=== PATIENT | female | born 1955 | race Caucasian/White ===

== ENCOUNTER 2021-09-20 18:55 | Inpatient (IN) | payer MEDICARE, MEDICAID ==
[~2021-09-20] VITALS: Ht 152.4 cm; Wt 97.5 kg
[2021-09-20 20:30] LABS: BASOPHILS % 0.4 % (0.0-2.0); EOSINOPHILS % 1.2 % (0.0-5.0); HEMATOCRIT. 42.2 % (36.0-48.0); HEMOGLOBIN. 13.6 g/dL (12.0-16.0); LYMPHOCYTES % 31.9 % (20.0-50.0); MEAN CORPUSCULAR HEMOGLOBIN 27.6 pg (28.0-32.0); MEAN CORPUSCULAR VOLUME 85.8 fL (81.0-99.0); MEAN PLATELET VOLUME 9.9 fl (7.4-10.4); MONOCYTES % 6.5 % (2.0-8.0); PLATELET 77 x1000/uL (130-400); RED BLOOD CELL COUNT 4.92 mill/uL (4.2-5.4)
[2021-09-20 20:35] LABS: CHLORIDE 108 mEq/L (98-107)
[2021-09-20 20:38] LABS: INR 0.9
[2021-09-20] MEDS: AMPICILLIN SOD/SULBACTAM NA 3 G in SODIUM CHLORIDE 0.9% 100 ML IV SCH (23:00)
[2021-09-21] MEDS ORDERED: NALOXONE HCL 0.4MG/ML VIAL IV PRN (01:30)
[2021-09-21] MEDS: HYDROCODONE/ACETAMINOPHEN 10/325MG TABLET PO PRN ×2 (02:33→13:42)
[2021-09-21] MEDS: AMPICILLIN SOD/SULBACTAM NA 3 G in SODIUM CHLORIDE 0.9% 100 ML IV SCH ×2 (03:00→10:13)
[2021-09-21] MEDS ORDERED: MAGNESIUM/ALUMINUM HYDROXIDE/SIMETHICONE 30ML UDC PO PRN (10:45)
[2021-09-21] MEDS ORDERED: CLONIDINE 0.1MG TABLET PO PRN (10:45)
[2021-09-21] MEDS ORDERED: ACETAMINOPHEN 325MG TABLET PO PRN (10:45)
[2021-09-21] MEDS ORDERED: ENOXAPARIN 40MG/0.4ML SYR SUBCUT SCH (11:00)
[2021-09-21 12:00] VITALS: BP 152/74
[2021-09-21 12:51] VITALS: BP 152/74
[2021-09-21] MEDS: CEFTRIAXONE 1,000 MG in DEXTROSE 5% WATER 50 ML IV SCH (13:42)
[2021-09-21] MEDS ORDERED: VANCOMYCIN 2,000 MG in DEXT 5% WATER 500 ML IV SCH (14:00)
[2021-09-21 16:00] VITALS: BP 145/88
[2021-09-21] MEDS ORDERED: ATOR40TA70 MT (17:13)
[2021-09-21] MEDS ORDERED: CETI10TA11 MT (17:13)
[2021-09-21] MEDS ORDERED: MONT-39 MT (17:13)
[2021-09-21] MEDS ORDERED: ONDA4TAB11 PO (17:14)
[2021-09-21] MEDS ORDERED: DOCU250C69 MT (17:14)
[2021-09-21] MEDS ORDERED: ALBU18HF2 IH (17:14)
[2021-09-21] MEDS ORDERED: EMPA25TA MT (17:14)
[2021-09-21] MEDS ORDERED: LOSA100T32 MT (17:14)
[2021-09-21] MEDS ORDERED: GABA800T97 MT (17:14)
[2021-09-21] MEDS ORDERED: FLUT1BLS INH (17:14)
[2021-09-21] MEDS ORDERED: FLUT15.844 BOTHNSTRLS (17:14)
[2021-09-21] MEDS ORDERED: DEXTROSE 50% WATER 50ML SYRINGE IV PRN (19:45)
[2021-09-21 20:00] VITALS: BP 144/49
[2021-09-21] MEDS ORDERED: AMLODIPINE 5MG TABLET PO SCH (20:30)
[2021-09-21] MEDS: GABAPENTIN 400MG CAPSULE PO SCH (20:49)
[2021-09-21] MEDS: MONTELUKAST SODIUM 10MG TABLET PO SCH (20:49)
[2021-09-21] MEDS: INSULIN LISPRO 100 UNITS/ML SUBCUT SCH (20:55)
[2021-09-21] MEDS: BLOOD SUGAR DIAGNOSTIC STRIP TEST SCH (20:55)
[2021-09-21] MEDS ORDERED: *PATIENT'S OWN MEDICATION STORAGE XX SCH (23:15)
[2021-09-22] VITALS: BP 158/57
[2021-09-22 04:00] VITALS: BP 155/54
[2021-09-22] MEDS: VANCOMYCIN 750MG PREMIX 150 ML IV SCH (05:53)
[2021-09-22] MEDS ORDERED: VANCOMYCIN 1GM PMX (XELLIA) 200 ML IV SCH (06:00)
[2021-09-22] MEDS: BLOOD SUGAR DIAGNOSTIC STRIP TEST SCH ×3 (07:00→21:09)
[2021-09-22] MEDS: INSULIN LISPRO 100 UNITS/ML SUBCUT SCH ×4 (07:50→21:08)
[2021-09-22 08:40] LABS: BASOPHILS % 0.5 % (0.0-2.0); EOSINOPHILS % 2.1 % (0.0-5.0); HEMATOCRIT. 40.2 % (36.0-48.0); HEMOGLOBIN. 13.1 g/dL (12.0-16.0); LYMPHOCYTES % 20.8 % (20.0-50.0); MEAN CORPUSCULAR HEMOGLOBIN 27.7 pg (28.0-32.0); MEAN CORPUSCULAR VOLUME 85.1 fL (81.0-99.0); MEAN PLATELET VOLUME 9.9 fl (7.4-10.4); NEUTROPHILS % 68.6 % (40.0-76.0); PLATELET 85 x1000/uL (130-400); RED BLOOD CELL COUNT 4.73 mill/uL (4.2-5.4); RED CELL DISTRIBUTION WIDTH 15.1 % (11.6-14.6)
[2021-09-22] MEDS ORDERED: ATORVASTATIN CALCIUM 40MG TABLET PO SCH (09:00)
[2021-09-22 09:01] LABS: CHLORIDE 103 mEq/L (98-107)
[2021-09-22] MEDS: DOCUSATE SODIUM 250MG CAPSULE PO SCH ×2 (09:56→18:55)
[2021-09-22] MEDS: CEFTRIAXONE 1,000 MG in DEXTROSE 5% WATER 50 ML IV SCH (09:56)
[2021-09-22] MEDS: LOSARTAN POTASSIUM 100 MG TABLET PO SCH (09:56)
[2021-09-22] MEDS: GABAPENTIN 400MG CAPSULE PO SCH ×2 (09:57→18:55)
[2021-09-22 20:00] VITALS: BP 147/58
[2021-09-22] MEDS: ATORVASTATIN CALCIUM 40MG TABLET PO SCH (21:09)
[2021-09-22] MEDS: MONTELUKAST SODIUM 10MG TABLET PO SCH (21:09)
[2021-09-22] MEDS: HYDROCODONE/ACETAMINOPHEN 10/325MG TABLET PO PRN (21:15)
[2021-09-23] VITALS: BP 140/60
[2021-09-23] MEDS: VANCOMYCIN 750MG PREMIX 150 ML IV SCH (00:07)
[2021-09-23 04:00] VITALS: BP 138/65
[2021-09-23] MEDS: BLOOD SUGAR DIAGNOSTIC STRIP TEST SCH ×4 (07:20→21:00)
[2021-09-23 08:00] VITALS: BP 160/70
[2021-09-23 08:42] LABS: BASOPHILS % 0.4 % (0.0-2.0); HEMATOCRIT. 42.7 % (36.0-48.0); HEMOGLOBIN. 14.1 g/dL (12.0-16.0); LYMPHOCYTES % 26.7 % (20.0-50.0); MEAN CORPUSCULAR VOLUME 84.7 fL (81.0-99.0); MEAN PLATELET VOLUME 9.6 fl (7.4-10.4); MONOCYTES % 6.6 % (2.0-8.0); NEUTROPHILS % 63.3 % (40.0-76.0); PLATELET 91 x1000/uL (130-400); RED BLOOD CELL COUNT 5.04 mill/uL (4.2-5.4); RED CELL DISTRIBUTION WIDTH 14.9 % (11.6-14.6)
[2021-09-23] MEDS ORDERED: AMLODIPINE 5MG TABLET PO SCH (09:00)
[2021-09-23] MEDS: FLUTICASONE/VILANTEROL 200-25 BLST.W.DEV ORI SCH ×2 (09:00→13:31)
[2021-09-23 09:25] LABS: CHLORIDE 102 mEq/L (98-107)
[2021-09-23] MEDS: CEFTRIAXONE 1,000 MG in DEXTROSE 5% WATER 50 ML IV SCH (10:08)
[2021-09-23] MEDS: LOSARTAN POTASSIUM 100 MG TABLET PO SCH (10:08)
[2021-09-23] MEDS: GABAPENTIN 400MG CAPSULE PO SCH ×2 (10:08→18:29)
[2021-09-23] MEDS: DOCUSATE SODIUM 250MG CAPSULE PO SCH ×2 (10:10→18:29)
[2021-09-23] MEDS: INSULIN LISPRO 100 UNITS/ML SUBCUT SCH ×4 (10:40→22:46)
[2021-09-23] MEDS: HYDROCODONE/ACETAMINOPHEN 10/325MG TABLET PO PRN ×2 (10:42→22:49)
[2021-09-23] MEDS ORDERED: VANCOMYCIN 750MG PREMIX 150 ML IV SCH (12:00)
[2021-09-23 16:00] VITALS: BP 130/55
[2021-09-23 20:00] VITALS: BP 134/50
[2021-09-23] MEDS ORDERED: MAGNESIUM 1 G PREMIX 100 ML IV NR (20:00)
[2021-09-23] MEDS: MONTELUKAST SODIUM 10MG TABLET PO SCH (20:33)
[2021-09-23] MEDS: ATORVASTATIN CALCIUM 40MG TABLET PO SCH (20:33)
[2021-09-24] VITALS: BP 132/58
[2021-09-24 04:00] VITALS: BP 130/56
[2021-09-24] MEDS: BLOOD SUGAR DIAGNOSTIC STRIP TEST SCH ×4 (06:24→21:00)
[2021-09-24 08:00] VITALS: BP 139/54
[2021-09-24 08:20] LABS: BASOPHILS % 0.4 % (0.0-2.0); EOSINOPHILS % 2.6 % (0.0-5.0); HEMATOCRIT. 39.9 % (36.0-48.0); LYMPHOCYTES % 24.1 % (20.0-50.0); MEAN CORPUSCULAR HEMOGLOBIN 27.7 pg (28.0-32.0); MEAN PLATELET VOLUME 9.9 fl (7.4-10.4); MONOCYTES % 7.3 % (2.0-8.0); NEUTROPHILS % 65.6 % (40.0-76.0); PLATELET 83 x1000/uL (130-400); RED CELL DISTRIBUTION WIDTH 14.7 % (11.6-14.6)
[2021-09-24 08:34] LABS: CHLORIDE 106 mEq/L (98-107)
[2021-09-24] MEDS ORDERED: LIDOCAINE HCL 1% 10 MG/ML 10ML VIAL ONE (08:41)
[2021-09-24] MEDS: AMLODIPINE 10MG TABLET PO SCH (10:20)
[2021-09-24] MEDS: FLUTICASONE/VILANTEROL 200-25 BLST.W.DEV ORI SCH (10:20)
[2021-09-24] MEDS: LOSARTAN POTASSIUM 100 MG TABLET PO SCH (10:20)
[2021-09-24] MEDS: GABAPENTIN 400MG CAPSULE PO SCH ×2 (10:20→18:31)
[2021-09-24] MEDS: DOCUSATE SODIUM 250MG CAPSULE PO SCH ×2 (10:20→17:00)
[2021-09-24] MEDS: CEFTRIAXONE 1,000 MG in DEXTROSE 5% WATER 50 ML IV SCH (10:21)
[2021-09-24] MEDS: INSULIN LISPRO 100 UNITS/ML SUBCUT SCH ×4 (10:39→21:00)
[2021-09-24] MEDS: HYDROCODONE/ACETAMINOPHEN 10/325MG TABLET PO PRN ×2 (10:47→18:45)
[2021-09-24 12:00] VITALS: BP 119/43
[2021-09-24] MEDS ORDERED: VANCOMYCIN 750MG PREMIX 150 ML IV SCH (12:00)
[2021-09-24] MEDS: ONDANSETRON HCL 4MG/2ML INJ IV PRN (13:57)
[2021-09-24 16:00] VITALS: BP 138/47
[2021-09-24] MEDS ORDERED: LEVOFLOXACIN 250MG TABLET PO SCH (17:45)
[2021-09-24] MEDS: METOCLOPRAMIDE HCL 10MG/2ML VIAL IV SCH (18:34)
[2021-09-24 20:00] VITALS: BP 126/53
[2021-09-24 20:12] LABS: CLARITY URINE CLEAR (CLEAR); COLOR URINE YELLOW (YELLOW); KETONES URINE NEGATIVE (NEGATIVE); LEUKOCYTE ESTERASE URINE NEGATIVE (NEGATIVE); NITRITE URINE NEGATIVE (NEGATIVE); OCCULT BLOOD URINE TRACE (NEGATIVE); PROTEIN URINE 2+ (NEGATIVE); SPECIFIC GRAVITY URINE 1.014 (1.005-1.030); UROBILINOGEN URINE 0.2 E.U./dL (0.2-1.0)
[2021-09-25] VITALS: BP 135/55
[2021-09-25] MEDS: ATORVASTATIN CALCIUM 40MG TABLET PO SCH ×2 (00:14→21:52)
[2021-09-25] MEDS: CEFEPIME 2,000 MG in DEXT 5% WATER 100 ML IV SCH ×3 (00:14→21:47)
[2021-09-25] MEDS: MONTELUKAST SODIUM 10MG TABLET PO SCH ×2 (00:14→21:53)
[2021-09-25] MEDS: METOCLOPRAMIDE HCL 10MG/2ML VIAL IV SCH ×4 (00:15→18:01)
[2021-09-25] MEDS: HYDROCODONE/ACETAMINOPHEN 10/325MG TABLET PO PRN ×3 (03:36→18:02)
[2021-09-25 04:00] VITALS: BP 139/54
[2021-09-25] MEDS: BLOOD SUGAR DIAGNOSTIC STRIP TEST SCH ×4 (05:34→21:53)
[2021-09-25] MEDS: INSULIN LISPRO 100 UNITS/ML SUBCUT SCH ×4 (07:50→23:06)
[2021-09-25 08:00] VITALS: BP 128/55
[2021-09-25] MEDS: DOCUSATE SODIUM 250MG CAPSULE PO SCH (09:00)
[2021-09-25] MEDS: LOSARTAN POTASSIUM 100 MG TABLET PO SCH (09:45)
[2021-09-25] MEDS: AMLODIPINE 10MG TABLET PO SCH (09:46)
[2021-09-25] MEDS: FLUTICASONE/VILANTEROL 200-25 BLST.W.DEV ORI SCH (09:46)
[2021-09-25] MEDS: GABAPENTIN 400MG CAPSULE PO SCH ×2 (09:46→18:01)
[2021-09-25 11:29] LABS: BASOPHILS % 0.2 % (0.0-2.0); EOSINOPHILS % 1.4 % (0.0-5.0); HEMATOCRIT. 39.6 % (36.0-48.0); HEMOGLOBIN. 12.9 g/dL (12.0-16.0); LYMPHOCYTES % 22.8 % (20.0-50.0); MEAN CORPUSCULAR HEMOGLOBIN 27.7 pg (28.0-32.0); MEAN CORPUSCULAR VOLUME 85.2 fL (81.0-99.0); MEAN PLATELET VOLUME 9.7 fl (7.4-10.4); MONOCYTES % 5.6 % (2.0-8.0); PLATELET 82 x1000/uL (130-400); RED BLOOD CELL COUNT 4.65 mill/uL (4.2-5.4); RED CELL DISTRIBUTION WIDTH 14.7 % (11.6-14.6)
[2021-09-25 11:33] LABS: CHLORIDE 105 mEq/L (98-107)
[2021-09-25 16:00] VITALS: BP 134/55
[2021-09-25 20:00] VITALS: BP 145/52
[2021-09-26] VITALS: BP 152/45
[2021-09-26] MEDS: METOCLOPRAMIDE HCL 10MG/2ML VIAL IV SCH ×5 (01:54→23:36)
[2021-09-26 04:00] VITALS: BP 168/66
[2021-09-26] MEDS: BLOOD SUGAR DIAGNOSTIC STRIP TEST SCH ×4 (07:36→20:50)
[2021-09-26] MEDS: INSULIN LISPRO 100 UNITS/ML SUBCUT SCH ×4 (07:40→20:49)
[2021-09-26 08:00] VITALS: BP 140/93
[2021-09-26] MEDS: FLUTICASONE/VILANTEROL 200-25 BLST.W.DEV ORI SCH (09:26)
[2021-09-26] MEDS: GABAPENTIN 400MG CAPSULE PO SCH ×2 (09:27→18:26)
[2021-09-26] MEDS: LOSARTAN POTASSIUM 100 MG TABLET PO SCH (09:27)
[2021-09-26] MEDS: AMLODIPINE 10MG TABLET PO SCH (09:27)
[2021-09-26] MEDS: CEFEPIME 2,000 MG in DEXT 5% WATER 100 ML IV SCH ×2 (09:28→20:47)
[2021-09-26 12:00] VITALS: BP 126/67
[2021-09-26] MEDS ORDERED: LOPERAMIDE HCL 2MG CAPSULE PO PRN (12:30)
[2021-09-26] MEDS ORDERED: NALOXONE HCL 0.4MG/ML VIAL IV PRN (12:45)
[2021-09-26] MEDS: HYDROCODONE/ACETAMINOPHEN 10/325MG TABLET PO PRN (18:28)
[2021-09-26 20:00] VITALS: BP 117/50
[2021-09-26] MEDS: ATORVASTATIN CALCIUM 40MG TABLET PO SCH (20:47)
[2021-09-26] MEDS: MONTELUKAST SODIUM 10MG TABLET PO SCH (20:47)
[2021-09-26] MEDS ORDERED: LATANOPROST 0.005% OPHTH DROPS 2.5ML BOTHEYE SCH (21:00)
[2021-09-26] MEDS: BRIMONIDINE 0.2% OPHTH DROPS 5ML BOTHEYE SCH (21:05)
[2021-09-27] VITALS: BP 136/65
[2021-09-27 04:00] VITALS: BP 140/59
[2021-09-27] MEDS: METOCLOPRAMIDE HCL 10MG/2ML VIAL IV SCH ×2 (06:12→10:27)
[2021-09-27] MEDS: BLOOD SUGAR DIAGNOSTIC STRIP TEST SCH ×2 (06:31→12:29)
[2021-09-27] MEDS: HYDROCODONE/ACETAMINOPHEN 10/325MG TABLET PO PRN (06:35)
[2021-09-27 06:40] LABS: BASOPHILS % 0.4 % (0.0-2.0); EOSINOPHILS % 2.8 % (0.0-5.0); HEMATOCRIT. 40.3 % (36.0-48.0); HEMOGLOBIN. 13.5 g/dL (12.0-16.0); LYMPHOCYTES % 24.1 % (20.0-50.0); MEAN CORPUSCULAR HEMOGLOBIN 28.1 pg (28.0-32.0); MEAN PLATELET VOLUME 10.7 fl (7.4-10.4); NEUTROPHILS % 66.7 % (40.0-76.0); PLATELET 73 x1000/uL (130-400); RED CELL DISTRIBUTION WIDTH 14.5 % (11.6-14.6)
[2021-09-27 07:16] LABS: CHLORIDE 105 mEq/L (98-107)
[2021-09-27 08:00] VITALS: BP 149/69
[2021-09-27] MEDS: LOSARTAN POTASSIUM 100 MG TABLET PO SCH (10:26)
[2021-09-27] MEDS: GABAPENTIN 400MG CAPSULE PO SCH (10:27)
[2021-09-27] MEDS: AMLODIPINE 10MG TABLET PO SCH (10:28)
[2021-09-27] MEDS: CEFEPIME 2,000 MG in DEXT 5% WATER 100 ML IV SCH (10:29)
[2021-09-27] MEDS: FLUTICASONE/VILANTEROL 200-25 BLST.W.DEV ORI SCH (10:31)
[2021-09-27] MEDS: BRIMONIDINE 0.2% OPHTH DROPS 5ML BOTHEYE SCH ×2 (10:32→13:18)
[2021-09-27] MEDS: INSULIN LISPRO 100 UNITS/ML SUBCUT SCH ×2 (10:35→12:29)
[2021-09-27] MEDS: ONDANSETRON HCL 4MG/2ML INJ IV PRN (10:40)
[2021-09-27 12:00] VITALS: BP 158/66
[2021-09-27 16:12] VITALS: BP 128/85
[2021-09-27] MEDS ORDERED: METO10TA3 MT (16:42)
[2021-09-27] MEDS ORDERED: LEVO750T46 MT (16:43)
== END 2021-09-27 16:56 | disposition home health service (06) | DRG 638 ==
LOC: ER 18:55 → MICUSO 20:56 → 6EST 09-21 10:21
PROVIDERS: ADMIT Internal Medicine; ATTEND Internal Medicine
PROC: 02H633Z Insertion of Infusion Device into Right Atrium, Percutaneous Approach (ICD-10-PCS; principal; 2021-09-24)
PROC: B548ZZA Ultrasonography of Superior Vena Cava, Guidance (ICD-10-PCS; 2021-09-24)
DX: E11.622 Type 2 diabetes mellitus with other skin ulcer (principal); L03.115 Cellulitis of right lower limb; Z68.41 Body mass index [BMI] 40.0-44.9, adult; L03.116 Cellulitis of left lower limb; I87.8 Other specified disorders of veins; L98.499 Non-pressure chronic ulcer of skin of other sites with unspecified severity; I89.0 Lymphedema, not elsewhere classified; J45.909 Unspecified asthma, uncomplicated; I83.019 Varicose veins of right lower extremity with ulcer of unspecified site; I83.029 Varicose veins of left lower extremity with ulcer of unspecified site; I10 Essential (primary) hypertension; I87.2 Venous insufficiency (chronic) (peripheral); E11.40 Type 2 diabetes mellitus with diabetic neuropathy, unspecified; D69.6 Thrombocytopenia, unspecified; E66.9 Obesity, unspecified; Z79.4 Long term (current) use of insulin; Z79.51 Long term (current) use of inhaled steroids; Z88.3 Allergy status to other anti-infective agents; Z20.822 Contact with and (suspected) exposure to COVID-19
CPT/HCPCS: 36415; 36573; 71045; 74018; 74176; 80048; 80053; 80076; 80202; 81003; 82962; 83036; 83735; 84100; 84145; 85025; 87070; 87077; 87186; 87426; 89055; 93970; 99285; C1725; J0295; J0692; J0696; J1815; J2310; J2405; J2765; J3370; J3475; J3490; J7050; J7060

== ENCOUNTER 2024-07-17 13:35 | Inpatient (IN) | payer MEDICARE, MEDICAID ==
[2024-07-16 14:12] VITALS: PULSE 84; RESP 18
[~2024-07-17] VITALS: Ht 152.4 cm; Wt 101.2 kg
[~2024-07-17 13:35] MED LIST: ALBU18HF2 IH; ATOR40TA70 MT; CETI10TA11 MT; DOCU-405 MT; EMPA25TA MT; FLUT15.844 BOTHNSTRLS; FLUT1BLS INH; GABA800T97 MT; LEVO750T68 MT; LOSA100T33 MT; METO10TA3 MT; MONT-39 MT; ONDA-239 PO
[2024-07-17] MEDS: ALBUTEROL (0.083%) 2.5MG/3ML NEB HHN SCH (14:12)
[2024-07-17] MEDS: IPRATROPIUM BROMIDE (0.02%) 0.5MG/2.5ML NEB HHN STA (14:12)
[2024-07-17] MEDS: METHYLPREDNISOLONE SOD SUCC 125MG/2ML (ACT-O-VIAL) IV STA (14:32)
[2024-07-17 14:40] VITALS: PULSE 84; RESP 18
[2024-07-17 14:45] LABS: BASOPHILS % 0.3 % (0.0-2.0); DIFFERENTIAL COMMENT 0; EOSINOPHILS % 1.5 % (0.0-5.0); HEMOGLOBIN. 9.4 g/dL (12.0-16.0); LYMPHOCYTES % 18.6 % (20.0-50.0); MEAN CORPUSCULAR HEMOGLOBIN 24.1 pg (28.0-32.0); MEAN CORPUSCULAR HGB CONC 31.3 g/dL (31.0-37.0); MEAN CORPUSCULAR VOLUME 77.2 fL (81.0-99.0); MEAN PLATELET VOLUME 7.3 fl (7.4-10.4); MONOCYTES % 5.7 % (2.0-8.0); NEUTROPHILS % 73.9 % (40.0-76.0); PLATELET 310 x1000/uL (130-400); RED BLOOD CELL COUNT 3.88 mill/uL (4.2-5.4); RED CELL DISTRIBUTION WIDTH 17.9 % (11.6-14.6); WHITE BLOOD COUNT 11.5 x1000/uL (4.5-11.0)
[2024-07-17 14:52] LABS: CHLORIDE 109 mEq/L (98-107); POTASSIUM 3.7 mEq/L (3.5-5.1); SODIUM 141 mEq/L (136-145)
[2024-07-17 14:53] LABS: CALCIUM 8.5 mg/dL (8.7-10.4); CARBON DIOXIDE 27 mEq/L (21-32)
[2024-07-17 14:56] VITALS: PULSE 84; RESP 20
[2024-07-17 14:58] LABS: CREATININE 0.8 mg/dL (0.6-1.0); GLUCOSE 177 mg/dL (70-105); UREA NITROGEN BLOOD 18 mg/dL (9-23)
[2024-07-17 15:00] LABS: TROPONIN I HIGH SENSITIVITY 7 ng/L (3.0-34)
[2024-07-17] MEDS ORDERED: AZITHROMYCIN 500MG/250ML 250 ML IV SCH (16:15)
[2024-07-17] MEDS: AZITHROMYCIN 500MG/250ML 250 ML IV SCH ×2 (16:50→21:18)
[2024-07-17 17:14] LABS: TROPONIN I HIGH SENSITIVITY 11 ng/L (3.0-34)
[2024-07-17 18:59] VITALS: BP 184/69; PULSE 97; RESP 20; TEMP 36.7; O2SAT 100
[2024-07-17 20:00] VITALS: BP 190/83; PULSE 93; RESP 18; TEMP 36.1; O2SAT 99
[2024-07-17 20:08] LABS: HEPATITIS B SURFACE ANTIGEN NEGATIVE (Negative)
[2024-07-17] MEDS ORDERED: ONDANSETRON HCL 4MG/2ML INJ IV PRN (20:15)
[2024-07-17] MEDS ORDERED: DEXTROSE 50% WATER 50ML SYRINGE IV PRN (20:15)
[2024-07-17 20:30] LABS: HEPATITIS C AB NON REACTIVE (Neg) (Negative)
[2024-07-17] MEDS: INSULIN LISPRO 100 UNITS/ML SUBCUT SCH (21:04)
[2024-07-17] MEDS: METHYLPREDNISOLONE SOD SUCC 40MG/ML (ACT-O-VIAL) IV SCH (21:05)
[2024-07-17] MEDS: GABAPENTIN 400MG CAPSULE PO SCH (21:05)
[2024-07-17] MEDS: ATORVASTATIN CALCIUM 40MG TABLET PO SCH (21:05)
[2024-07-17] MEDS: AMLODIPINE 10MG TABLET PO SCH (21:06)
[2024-07-17] MEDS: BLOOD SUGAR DIAGNOSTIC STRIP TEST SCH (21:11)
[2024-07-17 23:00] VITALS: PULSE 94; RESP 21; O2SAT 98
[2024-07-17] MEDS: IPRATROPIUM/ALBUTEROL 0.5-3(2.5)MG/3ML NEB HHN SCH (23:04)
[2024-07-17] MEDS: BUDESONIDE 0.5MG/2ML NEB HHN SCH (23:05)
[2024-07-17 23:55] VITALS: BP 190/83; PULSE 93; RESP 18; TEMP 36.1
[2024-07-18] VITALS (11 sets, daily range): BP systolic 117–150; BP diastolic 42–70; PULSE 76–92; RESP 16–20; TEMP 36.1–37; O2SAT 95–99
[2024-07-18 07:31] LABS: BASOPHILS % 0.1 % (0.0-2.0); DIFFERENTIAL COMMENT 0; HEMATOCRIT. 31.9 % (36.0-48.0); LYMPHOCYTES % 10.4 % (20.0-50.0); MEAN CORPUSCULAR HEMOGLOBIN 24.4 pg (28.0-32.0); MEAN CORPUSCULAR HGB CONC 31.4 g/dL (31.0-37.0); MEAN CORPUSCULAR VOLUME 77.8 fL (81.0-99.0); MEAN PLATELET VOLUME 8.4 fl (7.4-10.4); MONOCYTES % 1.3 % (2.0-8.0); NEUTROPHILS % 88.2 % (40.0-76.0); PLATELET 281 x1000/uL (130-400); RED CELL DISTRIBUTION WIDTH 17.9 % (11.6-14.6); WHITE BLOOD COUNT 6.8 x1000/uL (4.5-11.0)
[2024-07-18] MEDS: DOCUSATE SODIUM 250MG CAPSULE PO SCH (08:37)
[2024-07-18] MEDS: LOSARTAN 50 MG TABLET PO SCH (08:37)
[2024-07-18] MEDS: EMPAGLIFLOZIN 25MG TABLET PO SCH (08:37)
[2024-07-18] MEDS: CETIRIZINE 10MG TABLET PO SCH (08:37)
[2024-07-18] MEDS: INSULIN GLARGINE 100 UNITS/ML SUBCUT SCH ×2 (14:47→21:23)
[2024-07-18] MEDS: MONTELUKAST SODIUM 10MG TABLET PO SCH (17:02)
[2024-07-18] MEDS: FUROSEMIDE 40MG/4ML VIAL IVP SCH (17:02)
[2024-07-18] MEDS: ENOXAPARIN 40MG/0.4ML SYR SUBCUT SCH (21:26)
[2024-07-18] MEDS ORDERED: INSULIN GLARGINE 100 UNITS/ML SUBCUT SCH (22:00)
[2024-07-19] VITALS (10 sets, daily range): BP systolic 95–153; BP diastolic 52–67; PULSE 73–97; RESP 16–20; TEMP 36.2–36.8; O2SAT 94–100
[2024-07-19] MEDS: INSULIN LISPRO 100 UNITS/ML SUBCUT SCH ×2 (12:22→17:43)
[2024-07-19] MEDS: FUROSEMIDE 40MG/4ML VIAL IVP SCH (17:44)
[2024-07-19 20:10] LABS: POTASSIUM 4.1 mEq/L (3.5-5.1)
[2024-07-19 20:17] LABS: CREATININE 1.2 mg/dL (0.6-1.0)
[2024-07-19] MEDS: AZITHROMYCIN 500 MG TABLET PO SCH (21:56)
[2024-07-20] VITALS (9 sets, daily range): BP systolic 138–157; BP diastolic 53–61; PULSE 86–90; RESP 17–20; TEMP 36.1–36.9; O2SAT 95–98
[2024-07-20] MEDS ORDERED: FURO-151 MT (11:09)
[2024-07-20] MEDS ORDERED: POTA-205 MT (11:09)
== END 2024-07-20 16:33 | disposition home health service (06) | DRG 291 ==
LOC: ER 13:35 → EDBEDREQ 16:16 → EDBEDREQTM 16:16 → ENRESERV 16:37 → 8WST 17:31
PROVIDERS: ADMIT Internal Medicine; ATTEND Internal Medicine
DX: I11.0 Hypertensive heart disease with heart failure (principal); I50.33 Acute on chronic diastolic (congestive) heart failure; J96.20 Acute and chronic respiratory failure, unspecified whether with hypoxia or hypercapnia; J45.901 Unspecified asthma with (acute) exacerbation; L97.919 Non-pressure chronic ulcer of unspecified part of right lower leg with unspecified severity; Z68.41 Body mass index [BMI] 40.0-44.9, adult; J43.9 Emphysema, unspecified; D64.9 Anemia, unspecified; E66.01 Morbid (severe) obesity due to excess calories; E11.42 Type 2 diabetes mellitus with diabetic polyneuropathy; E78.5 Hyperlipidemia, unspecified; I89.0 Lymphedema, not elsewhere classified; B35.1 Tinea unguium; L60.3 Nail dystrophy; M25.572 Pain in left ankle and joints of left foot; M25.571 Pain in right ankle and joints of right foot; L84 Corns and callosities; Z79.4 Long term (current) use of insulin; Z79.84 Long term (current) use of oral hypoglycemic drugs; Z74.01 Bed confinement status; Z79.899 Other long term (current) drug therapy
CPT/HCPCS: 31720; 36415; 71045; 80048; 80061; 82962; 83036; 83880; 84484; 85025; 86705; 87340; 93005; 93306; 94070; 94640; 94664; 94760; 97162; 97166; 98960; 99285; A4606; A6449; J0456; J1650; J1815; J1940; J2919; J7626

== ENCOUNTER 2024-09-06 11:07 | Inpatient (IN) | payer MEDICARE, MEDICAID ==
[~2024-09-06] VITALS: Ht 152.4 cm; Wt 104.3 kg
[~2024-09-06 11:07] MED LIST changes: +AMLO5TAB88 PO; -CETI10TA11 MT; +CLAR10 PO; +FAMO20TA8 MT; +FURO-151 MT; +HYDR50TA40 MT; +INSU100I28 SQ; +IPRA3AMP9 NEB; -LEVO750T68 MT; +METF-414 PO; +P20 MT; +POTA-205 MT
[2024-09-06 11:50] LABS: BASOPHILS % 0.3 % (0.0-2.0); EOSINOPHILS % 3.1 % (0.0-5.0); HEMATOCRIT. 32.0 % (36.0-48.0); HEMOGLOBIN. 10.1 g/dL (12.0-16.0); LYMPHOCYTES % 25.5 % (20.0-50.0); MEAN PLATELET VOLUME 8.4 fl (7.4-10.4); MONOCYTES % 6.0 % (2.0-8.0); NEUTROPHILS % 65.1 % (40.0-76.0); PLATELET 219 x1000/uL (130-400); RED BLOOD CELL COUNT 4.02 mill/uL (4.2-5.4); RED CELL DISTRIBUTION WIDTH 21.9 % (11.6-14.6)
[2024-09-06 12:06] LABS: CREATININE 1.1 mg/dL (0.6-1.0); UREA NITROGEN BLOOD 17 mg/dL (9-23)
[2024-09-06 12:07] LABS: TROPONIN I HIGH SENSITIVITY < 4 ng/L (3.0-34)
[2024-09-06 12:08] LABS: ASPARTATE AMINOTRANSFERASE 11 IU/L (<34); BILIRUBIN DIRECT 0.1 mg/dL (<=3.0); BILIRUBIN TOTAL 0.3 mg/dL (0.1-1.0); PROTEIN TOTAL 5.9 g/dL (6.0-8.3)
[2024-09-06 14:18] LABS: TROPONIN I HIGH SENSITIVITY 4 ng/L (3.0-34)
[2024-09-06] MEDS: FUROSEMIDE 40MG/4ML VIAL IVP ONE (14:55)
[2024-09-06 17:34] VITALS: BP 125/87; PULSE 85; RESP 18; TEMP 36.696
[2024-09-06] MEDS: BLOOD SUGAR DIAGNOSTIC STRIP TEST SCH (17:40)
[2024-09-06] MEDS ORDERED: ACETAMINOPHEN 325MG TABLET PO PRN (17:45)
[2024-09-06] MEDS ORDERED: IPRATROPIUM/ALBUTEROL 0.5-3(2.5)MG/3ML NEB HHN PRN (17:45)
[2024-09-06] MEDS ORDERED: DEXTROSE 50% WATER 50ML SYRINGE IV PRN (17:45)
[2024-09-06] MEDS ORDERED: ONDANSETRON HCL 4MG/2ML INJ IV PRN (17:45)
[2024-09-06] MEDS: ACETAMINOPHEN 325MG TABLET PO PRN (19:13)
[2024-09-06] MEDS: INSULIN LISPRO 100 UNITS/ML SUBCUT SCH (19:15)
[2024-09-06 20:00] VITALS: PULSE 84; RESP 19; TEMP 36.6; O2SAT 100
[2024-09-06 20:07] LABS: CLARITY URINE CLEAR (CLEAR); COLOR URINE YELLOW (YELLOW); GLUCOSE URINE NEGATIVE (NEGATIVE); KETONES URINE NEGATIVE (NEGATIVE); LEUKOCYTE ESTERASE URINE NEGATIVE (NEGATIVE); NITRITE URINE NEGATIVE (NEGATIVE); OCCULT BLOOD URINE NEGATIVE (NEGATIVE); PH URINE 6.5 (4.5-8.0); PROTEIN URINE 1+ (NEGATIVE); SPECIFIC GRAVITY URINE 1.006 (1.005-1.030); UROBILINOGEN URINE 0.2 E.U./dL (0.2-1.0)
[2024-09-06 20:24] LABS: *AMPHETAMINES SCREEN URINE NEGATIVE (NEGATIVE); *BARBITURATES SCREEN URINE NEGATIVE (NEGATIVE); *BENZODIAZEPINES SCREEN URINE NEGATIVE (NEGATIVE); *COCAINE SCREEN URINE NEGATIVE (NEGATIVE); BACTERIA URINE NONE SEEN; CANNABINOID URINE SCREEN NEGATIVE (NEGATIVE); ECSTASY MDMA SCREEN URINE NEGATIVE (NEGATIVE); METHADONE URINE SCREEN NEGATIVE (NEGATIVE); OPIATES URINE SCREEN NEGATIVE (NEGATIVE); PHENCYCLIDINE URINE SCREEN NEGATIVE (NEGATIVE); RBC URINE NONE SEEN /hpf (0-2); SQUAMOUS EPITHELIAL CELL URINE NONE SEEN /lpf (RARE/1+); WBC URINE NONE SEEN /hpf (0-2); YEAST URINE NONE SEEN
[2024-09-07 04:00] VITALS: PULSE 79; RESP 19; TEMP 36.5; O2SAT 100
[2024-09-07 07:35] LABS: BASOPHILS % 0.2 % (0.0-2.0); EOSINOPHILS % 2.9 % (0.0-5.0); HEMATOCRIT. 29.8 % (36.0-48.0); HEMOGLOBIN. 9.5 g/dL (12.0-16.0); LYMPHOCYTES % 39.1 % (20.0-50.0); MEAN PLATELET VOLUME 8.7 fl (7.4-10.4); MONOCYTES % 6.2 % (2.0-8.0); NEUTROPHILS % 51.6 % (40.0-76.0); PLATELET 197 x1000/uL (130-400); RED BLOOD CELL COUNT 3.76 mill/uL (4.2-5.4); RED CELL DISTRIBUTION WIDTH 21.9 % (11.6-14.6)
[2024-09-07 07:48] LABS: CREATININE 0.9 mg/dL (0.6-1.0)
[2024-09-07 07:49] LABS: UREA NITROGEN BLOOD 17 mg/dL (9-23)
[2024-09-07 07:50] LABS: ASPARTATE AMINOTRANSFERASE 10 IU/L (<34)
[2024-09-07 07:51] LABS: BILIRUBIN TOTAL 0.4 mg/dL (0.1-1.0); PROTEIN TOTAL 5.2 g/dL (6.0-8.3)
[2024-09-07 08:00] VITALS: BP 147/58; PULSE 77; RESP 18; TEMP 36.6; O2SAT 98
[2024-09-07] MEDS: EMPAGLIFLOZIN 25MG TABLET PO SCH (11:47)
[2024-09-07] MEDS: GABAPENTIN 400MG CAPSULE PO SCH (11:47)
[2024-09-07] MEDS: AMLODIPINE 5MG TABLET PO SCH (11:47)
[2024-09-07] MEDS: DOCUSATE SODIUM 100MG CAPSULE PO PRN (11:47)
[2024-09-07] MEDS: METFORMIN HCL 500MG TABLET PO SCH (11:47)
[2024-09-07] MEDS: LORATADINE 10MG TABLET PO SCH (11:48)
[2024-09-07] MEDS: LOSARTAN 100 MG TABLET PO SCH (11:48)
[2024-09-07] MEDS: FAMOTIDINE 20MG TABLET PO SCH (11:48)
[2024-09-07] MEDS: INSULIN GLARGINE 100 UNITS/ML SUBCUT SCH (11:50)
[2024-09-07 12:00] VITALS: BP 136/59; PULSE 78; RESP 18; RESP 19; TEMP 36.6; TEMP 36.7; O2SAT 98
[2024-09-07] MEDS ORDERED: CEFEPIME 2GM IN DEXT 5% 100ML IV SCH (13:00)
[2024-09-07] MEDS: HYDRALAZINE HCL 50MG TABLET PO SCH (13:48)
[2024-09-07] MEDS: METOCLOPRAMIDE HCL 10MG TABLET PO SCH (13:48)
[2024-09-07] MEDS: CEFEPIME 2GM PREMIX 100ML IV SCH (14:53)
[2024-09-07 16:00] VITALS: BP 132/58; PULSE 77; RESP 19; TEMP 36.7; O2SAT 98
[2024-09-07 20:00] VITALS: BP 134/52; PULSE 89; RESP 16; TEMP 36.3; O2SAT 97
[2024-09-07] MEDS: DOCUSATE SODIUM 250MG CAPSULE PO SCH (21:00)
[2024-09-07] MEDS ORDERED: FAMOTIDINE(NEO) 1MG/ML SUSP PO SCH (21:00)
[2024-09-07] MEDS: MONTELUKAST SODIUM 10MG TABLET PO SCH (21:55)
[2024-09-07] MEDS: ATORVASTATIN CALCIUM 40MG TABLET PO SCH (21:56)
[2024-09-08 00:46] VITALS: BP 167/56; PULSE 83; RESP 20; TEMP 36.2; O2SAT 98
[2024-09-08] MEDS: CLONIDINE 0.1MG TABLET PO PRN (01:54)
[2024-09-08 04:00] VITALS: BP 104/51; PULSE 80; RESP 20; TEMP 36.2; O2SAT 96
[2024-09-08 08:00] VITALS: BP 107/48; PULSE 76; RESP 18; TEMP 36.1; O2SAT 98
[2024-09-08] MEDS: AMLODIPINE 10MG TABLET PO SCH (09:00)
[2024-09-08 12:00] VITALS: BP 126/43; PULSE 79; RESP 18; TEMP 36.3; O2SAT 100
[2024-09-08] MEDS: IRON SUCROSE COMPLEX 100 MG/5 ML ML IV SCH (14:52)
[2024-09-08 16:00] VITALS: BP 139/44; PULSE 85; RESP 18; TEMP 36.6; O2SAT 98
[2024-09-08 20:00] VITALS: BP 143/46; PULSE 87; RESP 20; TEMP 36.6; O2SAT 100
[2024-09-09] VITALS (8 sets, daily range): BP systolic 123–144; BP diastolic 37–74; PULSE 83–94; RESP 18–22; TEMP 36.4–36.7; O2SAT 97–100
[2024-09-09] MEDS: BUDESONIDE 0.5MG/2ML NEB HHN SCH (23:15)
[2024-09-10] VITALS (7 sets, daily range): BP systolic 127–164; BP diastolic 38–84; PULSE 87–117; RESP 18–20; TEMP 36.2–37.1; O2SAT 96–99
[2024-09-10] MEDS: AZTREONAM 2 GM in DEXT 5% WATER 100 ML IV SCH (11:59)
[2024-09-10] MEDS: INSULIN LISPRO 100 UNITS/ML SUBCUT SCH (13:02)
[2024-09-10] MEDS: DIPHENHYDRAMINE 50MG/ML VIAL IV PRN (14:48)
[2024-09-10 18:38] LABS: BASOPHILS % 0.5 % (0.0-2.0); EOSINOPHILS % 2.9 % (0.0-5.0); HEMATOCRIT. 33.9 % (36.0-48.0); HEMOGLOBIN. 10.7 g/dL (12.0-16.0); LYMPHOCYTES % 26.4 % (20.0-50.0); MEAN PLATELET VOLUME 8.9 fl (7.4-10.4); MONOCYTES % 6.1 % (2.0-8.0); NEUTROPHILS % 64.1 % (40.0-76.0); PLATELET 255 x1000/uL (130-400); RED BLOOD CELL COUNT 4.24 mill/uL (4.2-5.4); RED CELL DISTRIBUTION WIDTH 21.1 % (11.6-14.6)
[2024-09-10 18:44] LABS: CREATININE 1.0 mg/dL (0.6-1.0); UREA NITROGEN BLOOD 19.0 mg/dL (9-23)
[2024-09-11] VITALS (7 sets, daily range): BP systolic 119–154; BP diastolic 44–67; PULSE 18–92; RESP 15–22; TEMP 36.4–36.9; O2SAT 95–100
[2024-09-11 12:55] LABS: BG FRACTION INSPIRED OXYGEN 21; BG SAMPLE SITE RIGHT RADIAL; BG VENT MODE ROOM AIR
[2024-09-11 12:56] LABS: BG BASE EXCESS 3.4 mmol/L (-2.0-3.0); BG CARBOXYHEMOGLOBIN 0.8 % (0.5-1.5); BG HCO3 ACT 28.0 mmol/L (21.0-28.0); BG OXYGEN SATURATION 88.9 % (94.0-98.0); BG OXYHEMOGLOBIN 88.1 % (94.0-98.0); BG PCO2 42.6 mmHg (32.0-45.0); BG PH 7.436 (7.350-7.450); BG PO2 54.9 mmHg (83.0-108.0); BG TOTAL HEMOGLOBIN 11.9 g/dL (12.0-16.0)
[2024-09-11 12:57] LABS: BG DEOXYHEMOGLOBIN 11.0 % (0.0-5.0); BG METHEMOGLOBIN 0.1 % (0.5-1.5)
[2024-09-11] MEDS: HYDRALAZINE HCL 50MG TABLET PO SCH (15:23)
[2024-09-11] MEDS: LEVOFLOXACIN 750MG PREMIX 150 ML IV SCH (19:46)
[2024-09-12] VITALS: BP 135/55; PULSE 81; RESP 18; TEMP 36.7; O2SAT 100
[2024-09-12 04:00] VITALS: BP 115/48; PULSE 82; RESP 18; TEMP 36.8; O2SAT 98
[2024-09-12 08:00] VITALS: BP 129/50; PULSE 82; RESP 17; TEMP 35.6; O2SAT 100
[2024-09-12] MEDS ORDERED: VANCOMYCIN 2GM PMX (XELLIA) 400 ML IV NR (11:30)
[2024-09-12 12:00] VITALS: BP 121/56; PULSE 88; RESP 18; TEMP 36.2; O2SAT 100
[2024-09-12] MEDS: LINEZOLID 600MG TABLET PO SCH (13:30)
[2024-09-12 16:00] VITALS: BP 111/52; PULSE 93; RESP 19; TEMP 36; O2SAT 99
[2024-09-12 20:00] VITALS: BP 113/45; PULSE 94; RESP 19; TEMP 37.1; O2SAT 96
[2024-09-12] MEDS: LEVOFLOXACIN 250MG TABLET PO SCH (20:25)
[2024-09-12] MEDS: ENOXAPARIN 30MG/0.3ML SYR SUBCUT SCH (21:00)
== END 2024-09-12 22:50 | DRG 602 ==
LOC: ER 11:07 → 7WST 13:30 → EDBEDREQTM 13:38 → EDBEDREQ 13:38 → ENRESERV 14:08
PROVIDERS: ADMIT Internal Medicine; ATTEND Internal Medicine
DX: L03.115 Cellulitis of right lower limb (principal); G82.50 Quadriplegia, unspecified; J96.20 Acute and chronic respiratory failure, unspecified whether with hypoxia or hypercapnia; G93.41 Metabolic encephalopathy; I50.31 Acute diastolic (congestive) heart failure; E66.2 Morbid (severe) obesity with alveolar hypoventilation; J45.901 Unspecified asthma with (acute) exacerbation; L97.929 Non-pressure chronic ulcer of unspecified part of left lower leg with unspecified severity; L97.819 Non-pressure chronic ulcer of other part of right lower leg with unspecified severity; Z68.41 Body mass index [BMI] 40.0-44.9, adult; I11.0 Hypertensive heart disease with heart failure; D50.9 Iron deficiency anemia, unspecified; E11.43 Type 2 diabetes mellitus with diabetic autonomic (poly)neuropathy; I87.2 Venous insufficiency (chronic) (peripheral); E11.65 Type 2 diabetes mellitus with hyperglycemia; E87.6 Hypokalemia; J44.89 Other specified chronic obstructive pulmonary disease; E11.42 Type 2 diabetes mellitus with diabetic polyneuropathy; E78.00 Pure hypercholesterolemia, unspecified; K31.84 Gastroparesis; Z99.81 Dependence on supplemental oxygen; Z79.4 Long term (current) use of insulin; Z79.51 Long term (current) use of inhaled steroids; Z79.84 Long term (current) use of oral hypoglycemic drugs; Z79.899 Other long term (current) drug therapy; Z82.49 Family history of ischemic heart disease and other diseases of the circulatory system
CPT/HCPCS: 36415; 36600; 71045; 80048; 80053; 80076; 80305; 81003; 82375; 82728; 82805; 82962; 83036; 83540; 83550; 83880; 84145; 84484; 85025; 87070; 87077; 87186; 92523; 92610; 93005; 93970; 94070; 94640; 94664; 94760; 97110; 97116; 97162; 97166; 97530; 97535; 99285; J0692; J1200; J1650; J1815; J1938; J1956; J3373; J3490; J7060; J7626; J8597

== ENCOUNTER 2024-09-12 22:35 | Inpatient (IN) | payer MEDICARE, MEDICAID ==
[~2024-09-12] VITALS: Ht 152.4 cm; Wt 109.8 kg
[2024-09-12 23:00] VITALS: BP 144/57; PULSE 90; RESP 20; TEMP 36.418
[2024-09-13] MEDS ORDERED: DEXTROSE 50% WATER 50ML SYRINGE IV PRN (00:30)
[2024-09-13] MEDS ORDERED: IPRATROPIUM/ALBUTEROL 0.5-3(2.5)MG/3ML NEB HHN PRN (00:30)
[2024-09-13] MEDS ORDERED: CLONIDINE 0.1MG TABLET PO PRN (00:30)
[2024-09-13] MEDS ORDERED: DOCUSATE SODIUM 100MG CAPSULE PO PRN (00:30)
[2024-09-13] MEDS ORDERED: DIPHENHYDRAMINE 50MG/ML VIAL IV PRN (00:30)
[2024-09-13] MEDS ORDERED: ONDANSETRON HCL 4MG/2ML INJ IV PRN (00:30)
[2024-09-13] MEDS: ACETAMINOPHEN 325MG TABLET PO PRN (02:57)
[2024-09-13 06:58] LABS: BASOPHILS % 0.4 % (0.0-2.0); EOSINOPHILS % 2.1 % (0.0-5.0); HEMATOCRIT. 33.7 % (36.0-48.0); HEMOGLOBIN. 10.8 g/dL (12.0-16.0); LYMPHOCYTES % 34.9 % (20.0-50.0); MEAN PLATELET VOLUME 8.5 fl (7.4-10.4); MONOCYTES % 7.2 % (2.0-8.0); NEUTROPHILS % 55.4 % (40.0-76.0); PLATELET 226 x1000/uL (130-400); RED BLOOD CELL COUNT 4.23 mill/uL (4.2-5.4); RED CELL DISTRIBUTION WIDTH 21.0 % (11.6-14.6)
[2024-09-13] MEDS: HYDRALAZINE HCL 50MG TABLET PO SCH (07:11)
[2024-09-13] MEDS: BLOOD SUGAR DIAGNOSTIC STRIP TEST SCH (07:12)
[2024-09-13 07:20] LABS: CREATININE 1.3 mg/dL (0.6-1.0); UREA NITROGEN BLOOD 29 mg/dL (9-23)
[2024-09-13 07:22] LABS: ASPARTATE AMINOTRANSFERASE 12 IU/L (<34); BILIRUBIN TOTAL 0.2 mg/dL (0.1-1.0); PROTEIN TOTAL 5.4 g/dL (6.0-8.3)
[2024-09-13 08:00] VITALS: BP 125/53; PULSE 87; RESP 20; TEMP 36.9; O2SAT 99
[2024-09-13] MEDS: AMLODIPINE 10MG TABLET PO SCH (09:00)
[2024-09-13] MEDS: INSULIN LISPRO 100 UNITS/ML SUBCUT SCH (09:00)
[2024-09-13] MEDS: LEVOFLOXACIN 250MG TABLET PO SCH (09:51)
[2024-09-13] MEDS: LINEZOLID 600MG TABLET PO SCH (09:58)
[2024-09-13] MEDS: ENOXAPARIN 30MG/0.3ML SYR SUBCUT SCH (09:58)
[2024-09-13] MEDS: LORATADINE 10MG TABLET PO SCH (09:58)
[2024-09-13] MEDS: EMPAGLIFLOZIN 25MG TABLET PO SCH (09:59)
[2024-09-13] MEDS: GABAPENTIN 400MG CAPSULE PO SCH (09:59)
[2024-09-13] MEDS: DOCUSATE SODIUM 250MG CAPSULE PO SCH (09:59)
[2024-09-13] MEDS: FAMOTIDINE 20MG TABLET PO SCH (10:00)
[2024-09-13] MEDS: METFORMIN HCL 500MG TABLET PO SCH (10:00)
[2024-09-13] MEDS: LOSARTAN 100 MG TABLET PO SCH (10:00)
[2024-09-13] MEDS: INSULIN GLARGINE 100 UNITS/ML SUBCUT SCH (10:04)
[2024-09-13 14:30] VITALS: BP 115/50; PULSE 87; RESP 20; TEMP 36.8; O2SAT 99
[2024-09-13] MEDS: BISACODYL 10MG SUPP PR SCH (17:00)
[2024-09-13 18:35] LABS: COLOR URINE YELLOW (YELLOW); GLUCOSE URINE 3+ (NEGATIVE); KETONES URINE NEGATIVE (NEGATIVE); LEUKOCYTE ESTERASE URINE 1+ (NEGATIVE); NITRITE URINE NEGATIVE (NEGATIVE); OCCULT BLOOD URINE NEGATIVE (NEGATIVE); PH URINE 6.0 (4.5-8.0); PROTEIN URINE 2+ (NEGATIVE); SPECIFIC GRAVITY URINE 1.015 (1.005-1.030); UROBILINOGEN URINE 0.2 E.U./dL (0.2-1.0)
[2024-09-13 18:56] LABS: CLARITY URINE HAZY (CLEAR)
[2024-09-13 18:58] LABS: RBC URINE NONE SEEN /hpf (0-2)
[2024-09-13 18:59] LABS: BACTERIA URINE NONE SEEN; SQUAMOUS EPITHELIAL CELL URINE NONE SEEN /lpf (RARE/1+); YEAST URINE 3+
[2024-09-13 20:00] VITALS: BP 110/63; PULSE 85; RESP 18; TEMP 36.2; O2SAT 98
[2024-09-13] MEDS: POLYETHYLENE GLYCOL 3350 (17GM) 1 DOSE PACK PO SCH (21:59)
[2024-09-13] MEDS: ATORVASTATIN CALCIUM 40MG TABLET PO SCH (21:59)
[2024-09-13] MEDS: MONTELUKAST SODIUM 10MG TABLET PO SCH (22:00)
[2024-09-14 08:00] VITALS: BP 136/57; PULSE 86; RESP 18; TEMP 36.4; O2SAT 100
[2024-09-14 09:08] LABS: BASOPHILS % 0.7 % (0.0-2.0); EOSINOPHILS % 1.6 % (0.0-5.0); HEMATOCRIT. 33.9 % (36.0-48.0); HEMOGLOBIN. 11.1 g/dL (12.0-16.0); LYMPHOCYTES % 28.2 % (20.0-50.0); MEAN PLATELET VOLUME 8.3 fl (7.4-10.4); MONOCYTES % 8.2 % (2.0-8.0); NEUTROPHILS % 61.3 % (40.0-76.0); PLATELET 229 x1000/uL (130-400); RED BLOOD CELL COUNT 4.27 mill/uL (4.2-5.4); RED CELL DISTRIBUTION WIDTH 21.1 % (11.6-14.6)
[2024-09-14 09:26] LABS: CREATININE 1.4 mg/dL (0.6-1.0)
[2024-09-14 09:27] LABS: PROTEIN TOTAL 5.9 g/dL (6.0-8.3); UREA NITROGEN BLOOD 30 mg/dL (9-23)
[2024-09-14 09:28] LABS: ASPARTATE AMINOTRANSFERASE 19 IU/L (<34)
[2024-09-14 09:29] LABS: BILIRUBIN TOTAL 0.2 mg/dL (0.1-1.0); FOLIC ACID (FOLATE) SERUM 7.44 ng/mL (>5.38)
[2024-09-14 09:32] LABS: VITAMIN B12 SERUM 333 pg/mL (211-911)
[2024-09-14] MEDS: ACETAMINOPHEN 325MG TABLET PO PRN (10:52)
[2024-09-14] MEDS: FERROUS SULFATE 325MG TABLET PO SCH (12:38)
[2024-09-14 20:00] VITALS: BP 144/62; PULSE 90; RESP 18; TEMP 36.6; O2SAT 98
[2024-09-15 07:08] LABS: HEMATOCRIT. 33.1 % (36.0-48.0); HEMOGLOBIN. 10.7 g/dL (12.0-16.0); MEAN PLATELET VOLUME 8.6 fl (7.4-10.4); PLATELET 216 x1000/uL (130-400); RED BLOOD CELL COUNT 4.15 mill/uL (4.2-5.4); RED CELL DISTRIBUTION WIDTH 20.9 % (11.6-14.6)
[2024-09-15 07:26] LABS: CREATININE 1.4 mg/dL (0.6-1.0); UREA NITROGEN BLOOD 32.0 mg/dL (9-23)
[2024-09-15 08:00] VITALS: BP 135/48; PULSE 87; RESP 20; TEMP 36.5; O2SAT 100
[2024-09-15] MEDS: INSULIN GLARGINE 100 UNITS/ML SUBCUT SCH (10:00)
[2024-09-15 12:48] LABS: BAND% 2.0 % (1.0-6.0); EOSINOPHILS % MANUAL 1.0 % (0.0-5.0); LYMPHOCYTES % MANUAL 32.0 % (20.0-60.0); METAMYELOCYTES % 1.0 % (0-0); MONOCYTES % MANUAL 7.0 % (2.0-8.0); MYELOCYTES % 2.0 % (0-0); NEUTROPHILS % MANUAL 55.0 % (45.0-75.0); PLATELET ESTIMATE NORMAL
[2024-09-15] MEDS: LEVOFLOXACIN 250MG TABLET PO SCH (13:04)
[2024-09-15] MEDS ORDERED: IPRATROPIUM/ALBUTEROL 0.5-3(2.5)MG/3ML NEB HHN NR (14:15)
[2024-09-15] MEDS: LIDOCAINE 5% PATCH TOP PRN (18:24)
[2024-09-15 20:00] VITALS: BP 127/54; PULSE 83; RESP 17; TEMP 36.4; O2SAT 100
[2024-09-15] MEDS: MELATONIN 3MG TABLET PO SCH (22:20)
[2024-09-16] MEDS ORDERED: NALOXONE HCL 0.4MG/ML VIAL IV PRN (08:15)
[2024-09-16] MEDS: HYDROCODONE/ACETAMINOPHEN 5/325MG TABLET PO PRN (10:52)
[2024-09-16 20:00] VITALS: BP 124/79; PULSE 89; RESP 18; TEMP 37; O2SAT 100
[2024-09-17 08:00] VITALS: BP 140/54; PULSE 83; RESP 16; TEMP 36.3; O2SAT 95
[2024-09-17] MEDS: INSULIN LISPRO 100 UNITS/ML SUBCUT SCH (09:30)
[2024-09-17 09:52] VITALS: BP 140/54; PULSE 83
[2024-09-17] MEDS ORDERED: ERGOCALCIFEROL 50000UNITS CAPSULE PO SCH (16:00)
[2024-09-18] MEDS ORDERED: CYANOCOBALAMIN 1000MCG/ML VIAL IM SCH (09:00)
== END 2024-09-17 15:54 | disposition left against medical advice (07) | DRG 70 ==
PROVIDERS: ADMIT Physical Medicine & Rehabilitation Spinal Cord Injury Medicine; ATTEND Internal Medicine
DX: G93.41 Metabolic encephalopathy (principal); G82.50 Quadriplegia, unspecified; J96.21 Acute and chronic respiratory failure with hypoxia; E66.2 Morbid (severe) obesity with alveolar hypoventilation; I50.32 Chronic diastolic (congestive) heart failure; L97.919 Non-pressure chronic ulcer of unspecified part of right lower leg with unspecified severity; N39.0 Urinary tract infection, site not specified; Z68.42 Body mass index [BMI] 45.0-49.9, adult; J44.1 Chronic obstructive pulmonary disease with (acute) exacerbation; J45.901 Unspecified asthma with (acute) exacerbation; R44.0 Auditory hallucinations; D64.9 Anemia, unspecified; E11.42 Type 2 diabetes mellitus with diabetic polyneuropathy; G47.00 Insomnia, unspecified; H54.7 Unspecified visual loss; E55.9 Vitamin D deficiency, unspecified; R26.9 Unspecified abnormalities of gait and mobility; R41.89 Other symptoms and signs involving cognitive functions and awareness; R44.1 Visual hallucinations; R53.81 Other malaise; R82.4 Acetonuria; E11.43 Type 2 diabetes mellitus with diabetic autonomic (poly)neuropathy; K31.84 Gastroparesis; E11.65 Type 2 diabetes mellitus with hyperglycemia; E87.6 Hypokalemia; D50.9 Iron deficiency anemia, unspecified; I83.015 Varicose veins of right lower extremity with ulcer other part of foot; I11.0 Hypertensive heart disease with heart failure; J43.9 Emphysema, unspecified; K59.00 Constipation, unspecified; Z79.4 Long term (current) use of insulin; Z79.84 Long term (current) use of oral hypoglycemic drugs; Z79.899 Other long term (current) drug therapy; Z82.49 Family history of ischemic heart disease and other diseases of the circulatory system; Z91.81 History of falling; Z99.81 Dependence on supplemental oxygen; Z79.51 Long term (current) use of inhaled steroids; Z88.8 Allergy status to other drugs, medicaments and biological substances; I69.398 Other sequelae of cerebral infarction
CPT/HCPCS: 36415; 70551; 80048; 80053; 81003; 82140; 82306; 82607; 82728; 82746; 82962; 83036; 83540; 83550; 84134; 84145; 84443; 85025; 92523; 92610; 97110; 97112; 97116; 97162; 97166; 97530; 97535; 97542; A4606; J1650; J1815